=== PATIENT | male | born 2000 | race American Indian/Alaskan Native ===

== ENCOUNTER 2018-10-02 03:09 | Emergency (ER) | payer MEDICAID ==
[2018-10-02] MEDS ORDERED: PROVENTIL IH ONE ×3 (03:34→03:37)
[2018-10-02] MEDS ORDERED: SOLU-Medrol IV ONE (03:49)
--- NOTE | 2018-10-02 03:52 | Emergency Department Report ---
ED Asthma HPI - General Chief Complaint: Dyspnea/Respdistress Stated Complaint: ASTHMA ATTACK Time Seen by Provider: 10/02/18 03:46 Source: patient Mode of arrival: Ambulatory Limitations: No Limitations - History of Present Illness Initial Comments: Patient is 17 years old male with history of asthma. Patient presented to the ER complaining of shortness of breath and wheezing since yesterday. Patient denied any fever, chest pain, nausea or vomiting. MD Complaint: "asthma attack", shortness of breath, wheezing -: Last night Asthma History: childhood onset Severity: moderate Context: none known Associated Symptoms: none - Related Data Current Asthma Therapy: none Allergies Allergy/AdvReac Type Severity Reaction Status Date / Time No Known Allergies Allergy Unverified 10/02/18 04:23 ED Review of Systems ROS: Stated complaint: ASTHMA ATTACK Other details as noted in HPI Comment: All other systems reviewed and negative Constitutional: denies: chills, fever Respiratory: shortness of breath Cardiovascular: denies: chest pain Gastrointestinal: denies: abdominal pain, nausea ED Past Medical Hx - Past Medical History Previous Medical History?: Yes Hx Asthma: Yes Additional medical history: Bronchitis - Surgical History Past Surgical History?: No - Social History Smoking Status: Current Every Day Smoker Substance Use Type: Marijuana ED Physical Exam - General Limitations: No Limitations General appearance: alert, in no apparent distress - Head Head exam: Present: atraumatic, normocephalic - Eye Eye exam: Present: normal appearance, PERRL - ENT ENT exam: Present: normal exam, normal orophraynx, mucous membranes moist - Neck Neck exam: Present: normal inspection, full ROM. Absent: tenderness, meningismus, lymphadenopathy, thyromegaly - Respiratory Respiratory exam: Present: wheezes, rhonchi, prolonged expiratory. Absent: rales, stridor, chest wall tenderness, accessory muscle use, decreased breath sounds - Cardiovascular Cardiovascular Exam: Present: regular rate, normal rhythm, normal heart sounds - GI/Abdominal GI/Abdominal exam: Present: soft, normal bowel sounds. Absent: distended, tenderness, guarding, rebound, rigid, organomegaly, mass, bruit, pulsatile mass - Extremities Exam Extremities exam: Present: normal inspection, full ROM, normal capillary refill. Absent: tenderness, pedal edema, joint swelling, calf tenderness - Back Exam Back exam: Present: normal inspection - Neurological Exam Neurological exam: Present: alert, oriented X3, CN II-XII intact, normal gait, reflexes normal - Skin Skin exam: Present: warm, intact, normal color ED Course Vital Signs 10/02/18 10/02/18 03:19 03:38 Temperature 98.5 F Pulse Rate 97 H Pulse Rate [ 88 Anterior Bilateral Throughout] Respiratory 20 Rate Respiratory 20 Rate [Anterior Bilateral Throughout] Blood Pressure 147/103 O2 Sat by Pulse 100 Oximetry ED Medical Decision Making - Medical Decision Making Patient received albuterol 10 mg. Patient has stated that he is feeling much better. Patient also received Solu-Medrol 125 mg IV. Patient advised to follow-up with his primary care physician in the next 2-3 days and to return to the ER if symptoms are not improved. Critical care attestation.: If time is entered above; I have spent that time in minutes in the direct care of this critically ill patient, excluding procedure time. ED Disposition Clinical Impression: Asthma exacerbation Disposition: DC-01 TO HOME OR SELFCARE Is pt being admited?: No Condition: Stable Instructions: Asthma (ED) Referrals: [facility] [Provider Group] - 3-5 Days
[2018-10-02 06:00] VITALS: BP 130/75
== END 2018-10-02 06:30 | disposition home or self-care (01) ==
LOC: ED 03:09
DX: J45.901 Unspecified asthma with (acute) exacerbation (principal); F17.200 Nicotine dependence, unspecified, uncomplicated; F12.90 Cannabis use, unspecified, uncomplicated
CPT/HCPCS: 96374; 99283; J2930; 94640